=== PATIENT | female | born 1940 | race Caucasian/White ===

== ENCOUNTER 2023-03-11 10:03 | Emergency (ER) | payer MEDICARE, MEDICAID ==
[~2023-03-11] VITALS: Ht 162.6 cm; Wt 65.0 kg
[2023-03-11 10:46] VITALS: BP 157/82
--- NOTE | 2023-03-11 11:14 | NUR ---
medical technologist prn at bedside with patient.
== END 2023-03-11 12:04 | disposition home or self-care (01) ==
LOC: ER 10:03
DX: K46.9 Unspecified abdominal hernia without obstruction or gangrene (principal); Z88.2 Allergy status to sulfonamides; Z87.448 Personal history of other diseases of urinary system
CPT/HCPCS: 76705; 99284

== ENCOUNTER 2023-06-23 06:26 | Inpatient (IN) | payer MEDICARE, MEDICAID ==
[2023-06-16 14:52] LABS: BASOPHILS # (AUTO) 0.1 X10'3 (0-0.2); BILIRUBIN,URINE NEGATIVE (Neg); CLARITY,URINE SLIGHTLY CLOUDY (Clear); COLOR,URINE YELLOW (Yellow); EOSINOPHILS # (AUTO) 0.2 X10'3 (0-0.9); EOSINOPHILS % (AUTO) 2.3 % (0-6); GLUCOSE, URINE NEGATIVE (Neg); KETONES,URINE NEGATIVE (Neg); LEUKOCYTE ESTERASE ,URINE MODERATE (Neg); LYMPHOCYTES # (AUTO) 2.4 X10'3 (1.1-4.8); MEAN CORPUSCULAR HEMOGLOBIN 31.6 PG (27.0-31.0); MEAN CORPUSCULAR HGB CONC 33.7 g/dL (33.0-36.5); MEAN CORPUSCULAR VOLUME 93.9 FL (78-98); MEAN PLATELET VOLUME 8.1 FL (7.4-10.4); MONOCYTES # (AUTO) 0.6 X10'3 (0-0.9); MONOCYTES % (AUTO) 7.7 % (2-12); NEUTROPHILS # (AUTO) 4.7 X10'3 (1.8-7.7); NITRITES, URINE NEGATIVE (Neg); OCCULT BLOOD,URINE NEGATIVE (Neg); PRE OP HEMATOCRIT 44.3 % (35.0-45.0); PRE OP HEMOGLOBIN 14.9 g/dL (12.0-16.0); PRE OP PLATELET COUNT 232 X10'3 (140-440); PROTEIN,URINE NEGATIVE (Neg); RED BLOOD COUNT 4.72 X10'6 (4.20-5.60); RED CELL DISTRIBUTION WIDTH 13.7 % (11.5-14.5); UROBILINOGEN,URINE 0.2 E.U/dL (0.2-1.0)
[2023-06-16 14:58] LABS: UA COLLECTION TYPE VOIDED
[2023-06-16 15:03] LABS: BACTERIA,URINE 1+ /HPF (Neg); SQUAMOUS EPITHELIAL CELL,UR MANY /LPF (FEW); TRANSITIONAL EPI CELLS,URINE MODERATE /HPF; WBC CLUMPS,URINE MODERATE /HPF (NEGATIVE)
[2023-06-16 15:04] LABS: ALBUMIN 3.5 G/DL (3.4-5.0); ALBUMIN/GLOBULIN RATIO 1.1 (1.1-1.5); ALKALINE PHOSPHATASE 100 IU/L (46-116); BLOOD UREA NITROGEN 15 MG/DL (7-18); BUN/CREATININE RATIO 17.9 (10.0-20.0); CALCIUM 9.4 MG/DL (8.5-10.1); CHLORIDE 103 MMOL/L (99-107); CREATININE 0.84 MG/DL (0.40-0.90); PRE OP ALT 17 U/L (30-65); PRE OP ANION GAP 8 (8-16); PRE OP AST 14 U/L (10-37); PRE OP BILIRUB, TOTAL 0.4 MG/DL (0.0-1.0); PRE OP GLUCOSE 146 MG/DL (70-104); PRE OP POTASSIUM 3.8 MMOL/L (3.4-5.1); PRE OP SODIUM 139 MMOL/L (135-145); TOTAL CARBON DIOXIDE 28.5 MMOL/L (24-32); TOTAL PROTEIN 6.8 G/DL (6.4-8.2); WBC,URINE 50-100 /HPF (0-4); eGFR 65 ML/MIN
[2023-06-23] VITALS (33 sets, daily range): BP systolic 98–161; BP diastolic 44–84; PULSE 58–82; RESP 11–20; TEMP 97.4–97.9; O2SAT 94–100
[~2023-06-23] VITALS: Ht 162.6 cm; Wt 63.8 kg
[~2023-06-23 06:26] MED LIST: VIT C; VIT D; cefazolin 2gm/D5W 100mL 100 ML IV ONE; famotidine 20mg tablet PO ONE
[2023-06-23] MEDS ORDERED: bacitracin 15gm ointment TP ONE (08:20)
[2023-06-23] MEDS ORDERED: BUPIVAcaine/PF 2.5 mg/ml (0.25%) 30ml vial ONE (08:20)
[2023-06-23 08:27] LABS: BILIRUBIN,URINE NEGATIVE (Neg); CLARITY,URINE CLOUDY (Clear); COLOR,URINE YELLOW (Yellow); GLUCOSE, URINE NEGATIVE (Neg); KETONES,URINE NEGATIVE (Neg); LEUKOCYTE ESTERASE ,URINE SMALL (Neg); NITRITES, URINE NEGATIVE (Neg); OCCULT BLOOD,URINE NEGATIVE (Neg); PH,URINE 5.5 (4.8-8.0); PROTEIN,URINE NEGATIVE (Neg); UROBILINOGEN,URINE 0.2 E.U/dL (0.2-1.0)
[2023-06-23 08:32] LABS: UA COLLECTION TYPE NON-SPECIFIED
[2023-06-23 08:33] LABS: BACTERIA,URINE 1+ /HPF (Neg); MUCUS STRANDS FEW /LPF (Neg); RBC,URINE 0-2 /HPF (0-2); SQUAMOUS EPITHELIAL CELL,UR MANY /LPF (FEW)
[2023-06-23 08:34] LABS: TRANSITIONAL EPI CELLS,URINE FEW /HPF
[2023-06-23] MEDS ORDERED: proCHLORperazine 10 MG/2 ml inj IV PRN (08:55)
[2023-06-23] MEDS ORDERED: hydrALAZINE 20mg/ml inj. IV PRN (08:55)
[2023-06-23] MEDS ORDERED: meperidine/PF 25mg/ml syringe IV PRN ×2 (08:55)
[2023-06-23] MEDS ORDERED: acetaminophen 1,000mg/100ml IV 100 ML IV PRN (08:55)
[2023-06-23] MEDS ORDERED: ondansetron/PF 4mg/2ml inj IV PRN ×2 (08:55→13:35)
[2023-06-23] MEDS ORDERED: ringers solution, lacted 1,000 ML IV SCH (08:55)
[2023-06-23] MEDS ORDERED: morphine 2 MG/ML inj. syringe IV PRN ×2 (08:55→14:10)
[2023-06-23] MEDS ORDERED: labetalol 20mg/4ml (5mg/ml) syringe IV PRN (08:55)
[2023-06-23] MEDS ORDERED: midazolam 1 mg/ML 2ml injection ONE (08:58)
[2023-06-23] MEDS ORDERED: fentaNYL /PF 50mcg/ml 5ml ampule ONE (08:59)
[2023-06-23] MEDS ORDERED: sevoflurane 250ml liquid IH ONE (09:18)
[2023-06-23] MEDS ORDERED: rocuronium 10mg/ml inj IV ONE (09:33)
[2023-06-23] MEDS ORDERED: LIDOcaine 2% (20mg/ml) 5ml vial ONE (09:33)
[2023-06-23] MEDS ORDERED: propofol inj 20 ML IV ONE (09:33)
[2023-06-23] MEDS ORDERED: ondansetron/PF 4mg/2ml inj ONE (09:34)
[2023-06-23] MEDS ORDERED: dexamethasone sod phosphate 4mg/ml inj. ONE (09:34)
[2023-06-23] MEDS ORDERED: BUPIVAcaine/PF 2.5mg/ml (0.25%) 10ml vial ONE (10:27)
[2023-06-23] MEDS ORDERED: BUPIVACAINE liposomal/PF 13.3 MG/ML vial IM ONE (10:29)
[2023-06-23] MEDS ORDERED: glycopyrrolate 0.2mg/ml inj ONE (11:24)
[2023-06-23] MEDS ORDERED: neostigmine methylsulfate 1 MG/ML 10ml vial ONE (11:24)
--- NOTE | 2023-06-23 11:32 | NUR ---
Received from OR via , accompanied by Anesthesiologist ОЛЬГА and report given by Anesthesiolgist. ORAL AIRWAY IN PLACE, BREATHING EASILY W/ MILDY SONOROUS RESPIRATIONS AT TIMES. O2 PER MASK 6 LPM. SR ,MIDLINE ABDOMENAL DRESSING, SMALL AMOUNT OF SANGUIUNOUS DRAINAGE Steffanie DRAIN IN PLACE W/ SEROUSANGUINOUS DG. IV PATENT 20 DAVINAGE Jill FA, NOT RESPONSIDING TO VERBAL STIMULI. Addendum: 06/23/23 at 1217 by Zacarias Parra RN Amended: Links added.
[2023-06-23] MEDS: meperidine/PF 25mg/ml syringe IV PRN ×3 (11:54→13:32)
[2023-06-23] MEDS: morphine 4 MG/ML inj SYRINge IV PRN ×2 (12:19→12:47)
[2023-06-23] MEDS ORDERED: oxyCODONE/APAP 10/325mg tablet PO ONE (13:10)
[2023-06-23] MEDS ORDERED: naloxone 0.4 mg/ml inj IV PRN ×2 (13:30→13:35)
[2023-06-23] MEDS ORDERED: HYDROcodone/acetaminophen 10/325mg tab PO PRN (13:35)
[2023-06-23] MEDS ORDERED: mag hydrox/Alum hydrox/simeth 30ml oral suspension PO PRN (14:10)
[2023-06-23] MEDS ORDERED: acetaminophen 325mg tablet PO PRN (14:10)
[2023-06-23] MEDS ORDERED: magnesium 2GM in 50ml NS 50 ML IV PRN (14:10)
[2023-06-23] MEDS ORDERED: magnesium Cl slow-release 64mg tablet PO PRN (14:10)
[2023-06-23] MEDS ORDERED: magnesium 4gm in 100ml NS 100 ML IV PRN (14:10)
[2023-06-23] MEDS ORDERED: potassium Cl 20 mEq SR tablet PO PRN ×2 (14:10)
[2023-06-23] MEDS ORDERED: potassium Cl 40MEQ/1/2NS 520ml 520 ML IV PRN (14:10)
[2023-06-23] MEDS: HYDROmorph/NS 0.2 mg/ml PCA 100 ML IV SCH ×6 (14:43→23:00)
--- NOTE | 2023-06-23 15:02 | NUR ---
PT TRANSFERED TO [facility] VIA STRETCHER W/ AMENA. PT REQUIRED REPEATED INTERVENTIONS FOR PAIN THROUGHOUT HER STAY IN - PAIN CONTINED TO BE REPORTED 05/23 - ALTHOUGH AT TIMES SHE WAS RESTING QUIETLY AND APPEARED TO DOZE. MEDICATED X1 FOR NAUSEA W/ ZOFRAN. OBTAINED ORDERS FOR EXERCISE RIDER - INSTRUCTED PT IN USE... BUT AT TIME OF DC HAD NOT INITIATED A BOLUS DOSE, OTHER THAN WHEN EXERCISE RIDER WAS INITIATED. ORAL MED GIVEN WELL. BREATHING EASILY AFTER SOME INITAL SONOROUS RESPIRATIONS AND REMOVAL OF ORAL AIRWAY. TRANSITIONED TO NASAL CANNULA W/ O2 AT 3 LPM - MAINTAINING SAO2 AT >96% YARITZA DRAINED 100 ML SEROSANGUINOUS DG. SMALL AMOUNT OF SEROSANGUINOUS DG ON MIDLINE ABDOMINAL DRESSING. BILE DRAINING FROM LATERAL SITE - DRESSING LEAKING - NEW DRESSING APPLIED - SMALL BORE PLASTIC DRAIN VISIBLE. DAUGHTER VISITED - STATES PT IS THE CG FOR THREE OTHERS AT HOME. DC PLANNING CONSULT REQUESTED. INSTRUCTED IN USE OF IS - USED FAIR TECHNIQUE W/ COACHING - OBTAINED 100 ML. REPORT TO LIBBY PER TELEPHONE, AND DOMINGUEZ UPON TRANSFER TO FLOOR. Addendum: 06/23/23 at 1612 by Zacarias Parra RN Amended: Links added.
[2023-06-23] MEDS: ringers solution, lacted 1,000 ML IV SCH ×2 (16:24→17:59)
--- NOTE | 2023-06-23 18:35 | NUR ---
Patient in room ORTHO 4013. I have received report from LANI GRANADOS and had the opportunity to ask questions and assume patient care.
[2023-06-23] MEDS: K and/or MAG REPLACEMENT MC SCH (20:00)
[2023-06-23] MEDS: docusate sod 100mg capsule PO SCH (20:00)
[2023-06-24] MEDS: HYDROmorph/NS 0.2 mg/ml PCA 100 ML IV SCH ×6 (01:00→11:00)
[2023-06-24 06:00] VITALS: BP 103/42; PULSE 76; RESP 16; TEMP 97.1; O2SAT 95
[2023-06-24 06:07] LABS: BASOPHILS % (AUTO) 0.1 % (0-1); EOSINOPHILS % (AUTO) 0 % (0-6); HEMATOCRIT 37.2 % (35.0-45.0); HEMOGLOBIN 12.4 g/dl (12.0-16.0); LYMPHOCYTES # (AUTO) 1.6 X10'3 (1.1-4.8); LYMPHOCYTES % (AUTO) 10.1 % (21-51); MEAN CORPUSCULAR HEMOGLOBIN 31.4 PG (27.0-31.0); MEAN CORPUSCULAR HGB CONC 33.4 g/dL (33.0-36.5); MONOCYTES # (AUTO) 1.8 X10'3 (0-0.9); MONOCYTES % (AUTO) 11.3 % (2-12); NEUTROPHILS # (AUTO) 12.3 X10'3 (1.8-7.7); NEUTROPHILS % (AUTO) 78.5 % (42-75); PLATELET COUNT 185 X10'3 (140-440); RED BLOOD COUNT 3.95 X10'6 (4.20-5.60); RED CELL DISTRIBUTION WIDTH 13.6 % (11.5-14.5); WHITE BLOOD COUNT 15.7 X10'3 (4.5-11.0)
[2023-06-24 06:22] LABS: ALBUMIN 2.6 G/DL (3.4-5.0); ANION GAP 6 (8-16); BLOOD UREA NITROGEN 13 MG/DL (7-18); BUN/CREATININE RATIO 15.9 (10.0-20.0); CALCIUM 8.6 MG/DL (8.5-10.1); CHLORIDE 104 MMOL/L (99-107); CREATININE 0.82 MG/DL (0.40-0.90); GLUCOSE 152 MG/DL (70-104); MAGNESIUM 1.9 MG/DL (1.5-2.4); PHOSPHORUS 2.9 MG/DL (2.3-4.5); POTASSIUM 4.8 MMOL/L (3.5-5.1); SODIUM 135 MMOL/L (135-145); TOTAL CARBON DIOXIDE 25.4 MMOL/L (24-32); eCRCL 44 ML/MIN; eGFR 66 ML/MIN
--- NOTE | 2023-06-24 06:45 | NUR ---
Problems reprioritized. Patient report given, questions answered & plan of care reviewed with WINSTON VARGHESE.
--- NOTE | 2023-06-24 06:51 | NUR ---
Patient in room ORTHO 4013. I have received report from Kasey Parks and had the opportunity to ask questions and assume patient care.
[2023-06-24] MEDS: K and/or MAG REPLACEMENT MC SCH ×2 (08:00→20:37)
[2023-06-24] MEDS: docusate sod 100mg capsule PO SCH ×2 (09:17→20:25)
[2023-06-24] MEDS: diphenhydrAMINE 25mg capsule PO PRN ×2 (09:17→16:36)
[2023-06-24] MEDS: piperacillin/tazo 3.375gm/50ml 50 ML IV SCH ×2 (09:19→17:20)
[2023-06-24 09:40] VITALS: BP 101/50; PULSE 77; RESP 16; TEMP 97.5; O2SAT 98
[2023-06-24] MEDS ORDERED: ASCO-134 PO (10:27)
[2023-06-24 13:10] VITALS: RESP 18; O2SAT 97
[2023-06-24] MEDS ORDERED: iohexol 300 MG/1 ML 50ml polymer ONE (13:23)
[2023-06-24] MEDS ORDERED: morphine 2 MG/ML inj. syringe IV PRN (17:15)
[2023-06-24 18:00] VITALS: BP 101/47; PULSE 73; RESP 18; TEMP 97.8; O2SAT 91
--- NOTE | 2023-06-24 18:46 | NUR ---
Problems reprioritized. Patient report given, questions answered & plan of care reviewed with Kasey Parks.
--- NOTE | 2023-06-24 18:52 | NUR ---
Patient in room ORTHO 4013. I have received report from WINSTON VARGHESE and had the opportunity to ask questions and assume patient care.
[2023-06-24] MEDS: HYDROcodone/acetaminophen 10/325mg tab PO PRN (19:14)
[2023-06-24 20:00] VITALS: RESP 18; O2SAT 96
[2023-06-24] MEDS: normal saline 1000ml 1,000 ML IV SCH (20:25)
[2023-06-24] MEDS: ondansetron/PF 4mg/2ml inj IV PRN (20:29)
[2023-06-24 22:00] VITALS: BP 108/56; PULSE 80; RESP 16; TEMP 97.6; O2SAT 96
[2023-06-24] MEDS ORDERED: PCA waste documentation MC SCH (23:25)
[2023-06-25] MEDS: piperacillin/tazo 3.375gm/50ml 50 ML IV SCH ×4 (00:26→23:51)
[2023-06-25] MEDS: HYDROcodone/acetaminophen 10/325mg tab PO PRN ×3 (02:56→18:55)
--- NOTE | 2023-06-25 06:25 | NUR ---
Problems reprioritized. Patient report given, questions answered & plan of care reviewed with DREW VRAGHESE.
--- NOTE | 2023-06-25 06:29 | NUR ---
Patient in room ORTHO 4013. I have received report from CHEN SIDDIQUI RN and had the opportunity to ask questions and assume patient care.
[2023-06-25 06:58] LABS: BASOPHILS # (AUTO) 0.1 X10'3 (0-0.2); BASOPHILS % (AUTO) 0.4 % (0-1); EOSINOPHILS # (AUTO) 0.2 X10'3 (0-0.9); EOSINOPHILS % (AUTO) 1.4 % (0-6); HEMATOCRIT 35.3 % (35.0-45.0); HEMOGLOBIN 11.8 g/dl (12.0-16.0); LYMPHOCYTES # (AUTO) 1.9 X10'3 (1.1-4.8); MEAN CORPUSCULAR HEMOGLOBIN 31.4 PG (27.0-31.0); MEAN CORPUSCULAR HGB CONC 33.3 g/dL (33.0-36.5); MEAN CORPUSCULAR VOLUME 94.1 FL (78-98); MEAN PLATELET VOLUME 8.5 FL (7.4-10.4); MONOCYTES % (AUTO) 7.8 % (2-12); NEUTROPHILS # (AUTO) 9.5 X10'3 (1.8-7.7); NEUTROPHILS % (AUTO) 75.4 % (42-75); PLATELET COUNT 179 X10'3 (140-440); RED BLOOD COUNT 3.75 X10'6 (4.20-5.60); RED CELL DISTRIBUTION WIDTH 13.5 % (11.5-14.5); WHITE BLOOD COUNT 12.7 X10'3 (4.5-11.0)
[2023-06-25 07:19] LABS: ALBUMIN 2.4 G/DL (3.4-5.0); ANION GAP 5 (8-16); BLOOD UREA NITROGEN 13 MG/DL (7-18); BUN/CREATININE RATIO 14.1 (10.0-20.0); CALCIUM 8.5 MG/DL (8.5-10.1); CHLORIDE 103 MMOL/L (99-107); CREATININE 0.92 MG/DL (0.40-0.90); GLUCOSE 105 MG/DL (70-104); MAGNESIUM 2.1 MG/DL (1.5-2.4); PHOSPHORUS 2.8 MG/DL (2.3-4.5); POTASSIUM 4.2 MMOL/L (3.5-5.1); SODIUM 136 MMOL/L (135-145); TOTAL CARBON DIOXIDE 27.9 MMOL/L (24-32); eCRCL 39 ML/MIN; eGFR 58 ML/MIN
[2023-06-25] MEDS: docusate sod 100mg capsule PO SCH ×2 (07:31→20:00)
[2023-06-25 08:00] VITALS: BP 138/72; PULSE 64; RESP 16; TEMP 98.1; O2SAT 96
[2023-06-25] MEDS: K and/or MAG REPLACEMENT MC SCH ×2 (08:00→20:00)
[2023-06-25 09:32] VITALS: BP 108/53; PULSE 70; RESP 16; TEMP 97.8; O2SAT 92
[2023-06-25 13:16] VITALS: RESP 16; O2SAT 92
[2023-06-25] MEDS: normal saline 1000ml 1,000 ML IV SCH (13:37)
--- NOTE | 2023-06-25 15:17 | NUR ---
TOOK PT. T-TUBE BAG OFF AND CAPPED PER MD ORDERS. 600ML DRAINED
[2023-06-25 18:00] VITALS: BP 144/98; PULSE 112; RESP 22; TEMP 97.5; O2SAT 91
--- NOTE | 2023-06-25 18:34 | NUR ---
Problems reprioritized. Patient report given TO ABRIL VARGHESE, questions answered & plan of care reviewed with .
--- NOTE | 2023-06-25 18:35 | NUR ---
Patient in room ORTHO 4013. I have received report from HALIMA RUSSELL and had the opportunity to ask questions and assume patient care.
[2023-06-25] MEDS: ondansetron/PF 4mg/2ml inj IV PRN (18:55)
[2023-06-25 22:00] VITALS: BP 162/108; PULSE 117; RESP 18; TEMP 97.7; O2SAT 92
[2023-06-26 06:09] LABS: BASOPHILS % (AUTO) 0.4 % (0-1); EOSINOPHILS # (AUTO) 0.2 X10'3 (0-0.9); EOSINOPHILS % (AUTO) 2.3 % (0-6); HEMATOCRIT 35.7 % (35.0-45.0); HEMOGLOBIN 11.9 g/dl (12.0-16.0); LYMPHOCYTES # (AUTO) 1.5 X10'3 (1.1-4.8); LYMPHOCYTES % (AUTO) 13.7 % (21-51); MEAN CORPUSCULAR HEMOGLOBIN 31.4 PG (27.0-31.0); MEAN CORPUSCULAR HGB CONC 33.2 g/dL (33.0-36.5); MEAN CORPUSCULAR VOLUME 94.4 FL (78-98); MEAN PLATELET VOLUME 8.2 FL (7.4-10.4); MONOCYTES # (AUTO) 0.8 X10'3 (0-0.9); MONOCYTES % (AUTO) 6.9 % (2-12); NEUTROPHILS # (AUTO) 8.4 X10'3 (1.8-7.7); NEUTROPHILS % (AUTO) 76.7 % (42-75); PLATELET COUNT 178 X10'3 (140-440); RED BLOOD COUNT 3.78 X10'6 (4.20-5.60); RED CELL DISTRIBUTION WIDTH 13.2 % (11.5-14.5)
--- NOTE | 2023-06-26 06:09 | NUR ---
Problems reprioritized. Patient report given, questions answered & plan of care reviewed with HALIMA RUSSELL.
--- NOTE | 2023-06-26 06:10 | NUR ---
Patient in room ORTHO 4013. I have received report from ABRIL VARGHESE and had the opportunity to ask questions and assume patient care.
[2023-06-26 06:20] LABS: ALBUMIN 2.3 G/DL (3.4-5.0); ANION GAP 2 (8-16); BLOOD UREA NITROGEN 10 MG/DL (7-18); BUN/CREATININE RATIO 11.1 (10.0-20.0); CALCIUM 8.8 MG/DL (8.5-10.1); CHLORIDE 104 MMOL/L (99-107); GLUCOSE 118 MG/DL (70-104); PHOSPHORUS 3.4 MG/DL (2.3-4.5); POTASSIUM 4.1 MMOL/L (3.5-5.1); SODIUM 134 MMOL/L (135-145); TOTAL CARBON DIOXIDE 28.1 MMOL/L (24-32); eCRCL 40 ML/MIN; eGFR 60 ML/MIN
[2023-06-26 06:43] VITALS: BP 129/60; PULSE 78; RESP 18; TEMP 98.6; O2SAT 100
[2023-06-26] MEDS: ondansetron/PF 4mg/2ml inj IV PRN ×2 (06:56→12:37)
[2023-06-26] MEDS: K and/or MAG REPLACEMENT MC SCH ×2 (08:00→20:00)
[2023-06-26] MEDS: docusate sod 100mg capsule PO SCH ×2 (08:50→19:59)
[2023-06-26] MEDS: piperacillin/tazo 3.375gm/50ml 50 ML IV SCH ×2 (08:50→15:36)
[2023-06-26] MEDS: normal saline 1000ml 1,000 ML IV SCH (09:30)
[2023-06-26 10:04] VITALS: RESP 17; O2SAT 92
[2023-06-26] MEDS: HYDROcodone/acetaminophen 10/325mg tab PO PRN ×2 (11:06→20:00)
[2023-06-26 11:48] VITALS: BP 155/84; PULSE 78; RESP 17; TEMP 97.5; O2SAT 92
[2023-06-26] MEDS ORDERED: HYDR-3965 PO (12:30)
[2023-06-26] MEDS ORDERED: LACT1CAP74 PO (12:30)
[2023-06-26] MEDS ORDERED: AMOX-580 PO (12:30)
[2023-06-26] MEDS: magnesium hydroxide 30ml (MOM) UD suspension PO PRN (12:54)
--- NOTE | 2023-06-26 12:55 | NUR ---
PT. TOO NAUSEATED TO WALK Addendum: 06/26/23 at 1256 by Donald Saxena RN Amended: Links added. Addendum: 06/26/23 at 1318 by Donald Saxena RN PT. TOO NAUSEATED AND REFUSED TO WALK AT THIS TIME Addendum: 06/26/23 at 1327 by Donald Saxena RN PT. WALKED 25FT FRONT WHEEL WALKER 1+ ASST. REFUSED TO WALK ANYMORE.
--- NOTE | 2023-06-26 14:28 | NUR ---
Paged Rach GUPTA to notify patient will need rehab
[2023-06-26] MEDS: metoclopramide 5 mg/ml inj IV SCH ×2 (14:40→20:00)
--- NOTE | 2023-06-26 15:18 | NUR ---
PT. REFUSED AGAIN TO WALK. STATED I CAN TRY LATER. WILL CONTINUE TO EDUCATE PT. ON THE IMPORTANCE OF WALKING. Addendum: 06/26/23 at 1519 by Donald Saxena RN Amended: Links added.
[2023-06-26 18:00] VITALS: BP 125/60; PULSE 74; RESP 16; TEMP 97.1; O2SAT 93
--- NOTE | 2023-06-26 18:49 | NUR ---
Problems reprioritized. Patient report given TO JACKY VARGHESE, questions answered & plan of care reviewed with .
[2023-06-26 22:00] VITALS: BP 98/44; PULSE 67; RESP 16; TEMP 98.2; O2SAT 92
--- NOTE | 2023-06-26 23:00 | NUR ---
reported to HALIMA Zelaya. noted pt needs to be encouraged to walk. watch YARITZA drainage.
[2023-06-27] MEDS: piperacillin/tazo 3.375gm/50ml 50 ML IV SCH ×4 (00:23→23:49)
[2023-06-27] MEDS: normal saline 1000ml 1,000 ML IV SCH ×2 (00:26→23:49)
[2023-06-27] MEDS: HYDROcodone/acetaminophen 10/325mg tab PO PRN ×4 (00:30→19:22)
[2023-06-27] MEDS: metoclopramide 5 mg/ml inj IV SCH ×4 (01:52→19:22)
[2023-06-27 05:18] LABS: BASOPHILS % (AUTO) 0.5 % (0-1); EOSINOPHILS # (AUTO) 0.3 X10'3 (0-0.9); EOSINOPHILS % (AUTO) 3.5 % (0-6); HEMATOCRIT 33.5 % (35.0-45.0); HEMOGLOBIN 11.4 g/dl (12.0-16.0); LYMPHOCYTES # (AUTO) 2.2 X10'3 (1.1-4.8); MEAN CORPUSCULAR HEMOGLOBIN 31.8 PG (27.0-31.0); MEAN CORPUSCULAR HGB CONC 33.9 g/dL (33.0-36.5); MEAN CORPUSCULAR VOLUME 93.8 FL (78-98); MEAN PLATELET VOLUME 7.8 FL (7.4-10.4); MONOCYTES # (AUTO) 0.7 X10'3 (0-0.9); MONOCYTES % (AUTO) 8.2 % (2-12); NEUTROPHILS # (AUTO) 5.5 X10'3 (1.8-7.7); NEUTROPHILS % (AUTO) 62.8 % (42-75); PLATELET COUNT 203 X10'3 (140-440); RED BLOOD COUNT 3.57 X10'6 (4.20-5.60); RED CELL DISTRIBUTION WIDTH 13.3 % (11.5-14.5); WHITE BLOOD COUNT 8.7 X10'3 (4.5-11.0)
[2023-06-27 05:25] LABS: ALBUMIN 2.1 G/DL (3.4-5.0); ANION GAP 5 (8-16); BLOOD UREA NITROGEN 12 MG/DL (7-18); CALCIUM 8.5 MG/DL (8.5-10.1); CHLORIDE 104 MMOL/L (99-107); GLUCOSE 90 MG/DL (70-104); MAGNESIUM 2.1 MG/DL (1.5-2.4); PHOSPHORUS 3.3 MG/DL (2.3-4.5); POTASSIUM 3.8 MMOL/L (3.5-5.1); SODIUM 136 MMOL/L (135-145); TOTAL CARBON DIOXIDE 26.7 MMOL/L (24-32); eCRCL 45 ML/MIN; eGFR 68 ML/MIN
[2023-06-27 06:00] VITALS: BP 89/42; PULSE 69; RESP 14; TEMP 97.9; O2SAT 93
--- NOTE | 2023-06-27 06:40 | NUR ---
Patient in room ORTHO 4013. I have received report from HALIMA Zelaya and had the opportunity to ask questions and assume patient care.
[2023-06-27] MEDS: K and/or MAG REPLACEMENT MC SCH ×2 (08:00→20:00)
[2023-06-27] MEDS: docusate sod 100mg capsule PO SCH ×2 (08:44→19:16)
[2023-06-27 10:48] VITALS: BP 107/47; PULSE 61; RESP 16; TEMP 97.9; O2SAT 95
--- NOTE | 2023-06-27 14:05 | NUR ---
pt IV infiltrated and a new one was placed and is not running per md orders. She has been refusing regular diet, pt states that she "cannot handle the food" and wants to eat soups or broths. I have brought yogurt and jello for her to eat, and will notify the provider about changing diet.
[2023-06-27] MEDS: magnesium citrate 296ml oral solution PO ONE ×2 (15:50→16:44)
[2023-06-27] MEDS: magnesium hydroxide 30ml (MOM) UD suspension PO PRN (16:26)
[2023-06-27 18:00] VITALS: BP 101/41; PULSE 61; RESP 16; TEMP 97.9; O2SAT 94
--- NOTE | 2023-06-27 18:58 | NUR ---
Problems reprioritized. Patient report given, questions answered & plan of care reviewed with HALIMA Gong.
[2023-06-27 22:00] VITALS: BP 103/46; PULSE 67; RESP 16; TEMP 98.4; O2SAT 94
[2023-06-28] MEDS: metoclopramide 5 mg/ml inj IV SCH ×3 (01:54→14:00)
[2023-06-28 02:05] VITALS: BP 112/50; PULSE 68; RESP 16; TEMP 99; O2SAT 96
[2023-06-28 06:00] VITALS: BP 119/43; PULSE 70; RESP 18; TEMP 98.5; O2SAT 97
--- NOTE | 2023-06-28 06:18 | NUR ---
Problems reprioritized. Patient report given, questions answered & plan of care reviewed with HALIMA Loyd.
[2023-06-28 06:33] LABS: BASOPHILS # (AUTO) 0.1 X10'3 (0-0.2); BASOPHILS % (AUTO) 0.8 % (0-1); EOSINOPHILS # (AUTO) 0.6 X10'3 (0-0.9); EOSINOPHILS % (AUTO) 7.1 % (0-6); HEMATOCRIT 36.6 % (35.0-45.0); HEMOGLOBIN 12.2 g/dl (12.0-16.0); LYMPHOCYTES # (AUTO) 1.7 X10'3 (1.1-4.8); LYMPHOCYTES % (AUTO) 19.1 % (21-51); MEAN CORPUSCULAR HEMOGLOBIN 31.4 PG (27.0-31.0); MEAN CORPUSCULAR HGB CONC 33.5 g/dL (33.0-36.5); MEAN PLATELET VOLUME 7.8 FL (7.4-10.4); MONOCYTES # (AUTO) 0.9 X10'3 (0-0.9); MONOCYTES % (AUTO) 9.7 % (2-12); NEUTROPHILS # (AUTO) 5.6 X10'3 (1.8-7.7); NEUTROPHILS % (AUTO) 63.3 % (42-75); PLATELET COUNT 242 X10'3 (140-440); RED BLOOD COUNT 3.89 X10'6 (4.20-5.60); RED CELL DISTRIBUTION WIDTH 13.4 % (11.5-14.5); WHITE BLOOD COUNT 8.9 X10'3 (4.5-11.0)
--- NOTE | 2023-06-28 06:34 | NUR ---
Patient in room ORTHO 4013. I have received report from HALIMA Gong and had the opportunity to ask questions and assume patient care.
[2023-06-28 07:15] LABS: ALBUMIN 2.4 G/DL (3.4-5.0); ANION GAP 5 (8-16); BLOOD UREA NITROGEN 11 MG/DL (7-18); BUN/CREATININE RATIO 13.4 (10.0-20.0); CALCIUM 8.7 MG/DL (8.5-10.1); CHLORIDE 105 MMOL/L (99-107); CREATININE 0.82 MG/DL (0.40-0.90); GLUCOSE 89 MG/DL (70-104); MAGNESIUM 2.3 MG/DL (1.5-2.4); PHOSPHORUS 2.9 MG/DL (2.3-4.5); POTASSIUM 3.9 MMOL/L (3.5-5.1); SODIUM 138 MMOL/L (135-145); TOTAL CARBON DIOXIDE 27.9 MMOL/L (24-32); eCRCL 44 ML/MIN; eGFR 66 ML/MIN
[2023-06-28] MEDS: piperacillin/tazo 3.375gm/50ml 50 ML IV SCH ×2 (07:58→16:00)
[2023-06-28] MEDS: docusate sod 100mg capsule PO SCH (08:00)
[2023-06-28] MEDS: K and/or MAG REPLACEMENT MC SCH (08:00)
--- NOTE | 2023-06-28 08:13 | NUR ---
Pt is requesting for case management to set her up for home health. I have paged case management and will continue to wait to hear back from them.
--- NOTE | 2023-06-28 17:50 | NUR ---
pt given discharge paperwork and asked questions upon discharge. Pt was wheelchaired to lobby with all of her belongings in no distress. Pt left in private vehicle with her daughter
== END 2023-06-28 18:15 | disposition home or self-care (01) | DRG 412 ==
LOC: PAS 06:26 → ORTHO 4S 13:42
PROVIDERS: ADMIT Surgery; ATTEND Surgery
PROC: 0FT40ZZ Resection of Gallbladder, Open Approach (ICD-10-PCS; 2023-06-23)
PROC: 0FJ44ZZ Inspection of Gallbladder, Percutaneous Endoscopic Approach (ICD-10-PCS; 2023-06-23)
PROC: 0WQF0ZZ Repair Abdominal Wall, Open Approach (ICD-10-PCS; 2023-06-23)
PROC: 0F9900Z Drainage of Common Bile Duct with Drainage Device, Open Approach (ICD-10-PCS; principal; 2023-06-23 09:18)
DX: K80.70 Calculus of gallbladder and bile duct without cholecystitis without obstruction (principal); Q44.4 Choledochal cyst; K43.2 Incisional hernia without obstruction or gangrene; K21.9 Gastro-esophageal reflux disease without esophagitis; K57.90 Diverticulosis of intestine, part unspecified, without perforation or abscess without bleeding; I10 Essential (primary) hypertension; K66.0 Peritoneal adhesions (postprocedural) (postinfection); K82.8 Other specified diseases of gallbladder; K83.5 Biliary cyst; Z88.2 Allergy status to sulfonamides; Z80.9 Family history of malignant neoplasm, unspecified; K43.9 Ventral hernia without obstruction or gangrene
CPT/HCPCS: 36415; 47531; 80048; 80053; 81001; 82948; 83735; 84100; 85025; 87081; 87088; 93005; 97116; 97161; 97530; A4215; A4615; A4618; A6449; A7000; C9290; G0378; J0131; J0690; J1100; J1170; J2175; J2250; J2270; J2405; J2543; J2704; J2710; J2765; J3010; J3490; J7030; J7120; Q0163; Q9967

== ENCOUNTER 2023-07-27 06:51 | Day surgery (SDC) | payer MEDICARE, MEDICAID ==
[~2023-07-27] VITALS: Ht 154.9 cm; Wt 61.3 kg
[~2023-07-27 06:51] MED LIST changes: +AMOX-580 PO; +ASCO-134 PO; +HYDR-3965 PO; +LACT1CAP74 PO; -VIT C; -cefazolin 2gm/D5W 100mL 100 ML IV ONE; -famotidine 20mg tablet PO ONE
[2023-07-27 07:34] VITALS: BP 125/81; PULSE 75; RESP 12; TEMP 98; O2SAT 97
[2023-07-27] MEDS ORDERED: normal saline 1000ml 1,000 ML IV SCH (07:35)
[2023-07-27] MEDS ORDERED: NO HOME MEDS (07:58)
[2023-07-27] MEDS ORDERED: levoFLOXACIN-Levaquin 500mg/D5 100 ML IV ONE (08:25)
[2023-07-27] MEDS ORDERED: CefTRIAXone/D5W-Rocephin 1gm 50 ML IV ONE (08:40)
[2023-07-27 09:15] VITALS: BP 120/79; PULSE 74; RESP 14; O2SAT 97
[2023-07-27 09:19] LABS: BASOPHILS # (AUTO) 0.1 X10'3 (0-0.2); EOSINOPHILS # (AUTO) 0.2 X10'3 (0-0.9); HEMOGLOBIN 14.5 g/dl (12.0-16.0); MEAN CORPUSCULAR HGB CONC 33.4 g/dL (33.0-36.5); MEAN PLATELET VOLUME 8.4 FL (7.4-10.4); MONOCYTES # (AUTO) 0.5 X10'3 (0-0.9); RED BLOOD COUNT 4.62 X10'6 (4.20-5.60)
[2023-07-27 09:21] LABS: BASOPHILS % (AUTO) 0.9 % (0-1); EOSINOPHILS % (AUTO) 2.7 % (0-6); HEMATOCRIT 43.5 % (35.0-45.0); LYMPHOCYTES % (AUTO) 28.9 % (21-51); MEAN CORPUSCULAR HEMOGLOBIN 31.4 PG (27.0-31.0); MEAN CORPUSCULAR VOLUME 94.1 FL (78-98); MONOCYTES % (AUTO) 7.8 % (2-12); NEUTROPHILS # (AUTO) 4.1 X10'3 (1.8-7.7); NEUTROPHILS % (AUTO) 59.7 % (42-75); PLATELET COUNT 233 X10'3 (140-440); RED CELL DISTRIBUTION WIDTH 14.1 % (11.5-14.5); WHITE BLOOD COUNT 6.9 X10'3 (4.5-11.0)
[2023-07-27 10:24] LABS: ALBUMIN 3.6 G/DL (3.4-5.0); ANION GAP 12 (8-16); BLOOD UREA NITROGEN 11 MG/DL (7-18); BUN/CREATININE RATIO 15.5 (10.0-20.0); CALCIUM 9.5 MG/DL (8.5-10.1); CHLORIDE 104 MMOL/L (99-107); CREATININE 0.71 MG/DL (0.40-0.90); GLUCOSE 99 MG/DL (70-104); POTASSIUM 4.2 MMOL/L (3.5-5.1); SODIUM 140 MMOL/L (135-145); TOTAL CARBON DIOXIDE 23.8 MMOL/L (24-32); eCRCL 45 ML/MIN; eGFR 78 ML/MIN
== END 2023-07-27 09:27 | disposition home or self-care (01) ==
LOC: SSTAY O 06:51
PROVIDERS: ATTEND Radiology Diagnostic Radiology
DX: K80.20 Calculus of gallbladder without cholecystitis without obstruction (principal); Z98.890 Other specified postprocedural states
CPT/HCPCS: 36415; 47537; 80048; 85025; J7030; A6213; A6258; A6449

== ENCOUNTER 2024-09-09 19:30 | Emergency (ER) | payer MEDICARE, MEDICAID ==
[~2024-09-09] VITALS: Ht 160 cm; Wt 67.1 kg
[~2024-09-09 19:30] MED LIST changes: -AMOX-580 PO; -ASCO-134 PO; -HYDR-3965 PO; -LACT1CAP74 PO; +NO HOME MEDS; +PSEU-303 PO
[2024-09-09 19:42] VITALS: TEMP 98.3
[2024-09-09 21:47] VITALS: BP 158/75; PULSE 83; RESP 18; O2SAT 99
== END 2024-09-09 21:49 | disposition home or self-care (01) ==
LOC: ER 19:30
DX: S80.02XA Contusion of left knee, initial encounter (principal); S50.02XA Contusion of left elbow, initial encounter; S50.312A Abrasion of left elbow, initial encounter; Z90.710 Acquired absence of both cervix and uterus; Z88.2 Allergy status to sulfonamides; Z79.899 Other long term (current) drug therapy; W01.0XXA Fall on same level from slipping, tripping and stumbling without subsequent striking against object, initial encounter; Y93.89 Activity, other specified; Y92.89 Other specified places as the place of occurrence of the external cause; Y99.8 Other external cause status
CPT/HCPCS: 73080; 73564; 99284